=== PATIENT | male | born 1955 | race Caucasian/White ===

== ENCOUNTER 2018-07-29 06:48 | Day surgery (SDC) | payer OTHER ==
[2018-07-29] MEDS ORDERED: LIDOCAINE HCL 1% MPF 30 SOL ONE ×2 (07:49)
[2018-07-29] MEDS ORDERED: PROPOFOL 500 MG/50 ML EMU IV ONE (07:50)
[2018-07-29 09:02] VITALS: TEMP 97.2
[2018-07-29 09:09] VITALS: PULSE 76; RESP 20
[2018-07-29 09:30] VITALS: BP 167/91; O2SAT 96
== END 2018-07-29 09:40 | disposition home or self-care (01) | DRG 951 ==
LOC: SURG 06:48
PROVIDERS: ATTEND Internal Medicine Gastroenterology
DX: Z12.11 Encounter for screening for malignant neoplasm of colon (principal); E11.9 Type 2 diabetes mellitus without complications; K57.30 Diverticulosis of large intestine without perforation or abscess without bleeding; K64.8 Other hemorrhoids; Z86.010 Personal history of colon polyps
CPT/HCPCS: J2001; J2704